=== PATIENT | female | born 1980 | race Hispanic/Latino ===

== ENCOUNTER → 2021-11-02 | Outpatient (CLI) | payer OTHER ==
[~2021-11-02] MED LIST: LIDOCAINE HCL 1% LOCAL INJ 20 ML VIAL ONE
[2021-11-02 11:55] LABS: APPEARANCE,CSF CLEAR (CLEAR); COLOR,CSF COLORLESS (COLORLESS); TUBE NUMBER 3; WHITE BLOOD CELL,CSF 1 cells/uL (0-5)
== END ==
LOC: DX 09:27
PROVIDERS: ATTEND Optometrist
DX: H47.10 Unspecified papilledema (principal)
CPT/HCPCS: 36415; 62328; 77003; 82945; 84157; 87070; 87205; 89051; J2001